=== PATIENT | male | born 1955 | race Two or more races ===

== ENCOUNTER 2021-07-23 11:49 | Emergency (ER) | payer MEDICARE, OTHER ==
[~2021-07-23] VITALS: Ht 182.9 cm; Wt 104.3 kg
--- NOTE | 2021-07-23 14:12 | NUR ---
CALLED DR. OVIEDO @ [facility] [phone] X [phone] SANCHEZ.
[2021-07-23] MEDS ORDERED: HYDR-4303 PO (14:27)
--- NOTE | 2021-07-23 14:36 | NUR ---
Patient discharged to home in stable condition. Written and verbal after care instructions given. Patient verbalizes understanding of instruction.
[2021-07-23 14:37] VITALS: BP 147/88
== END 2021-07-23 14:37 | disposition home or self-care (01) ==
LOC: ER 11:53
DX: S72.112A Displaced fracture of greater trochanter of left femur, initial encounter for closed fracture (principal); S80.212A Abrasion, left knee, initial encounter; S60.413A Abrasion of left middle finger, initial encounter; J44.9 Chronic obstructive pulmonary disease, unspecified; Z98.890 Other specified postprocedural states; Z60.2 Problems related to living alone; Z79.899 Other long term (current) drug therapy; W01.0XXA Fall on same level from slipping, tripping and stumbling without subsequent striking against object, initial encounter; Y93.01 Activity, walking, marching and hiking; Y92.89 Other specified places as the place of occurrence of the external cause; Y99.8 Other external cause status
CPT/HCPCS: 73502; 73700-TC